=== PATIENT | female | born 1990 | race Two or more races ===

== ENCOUNTER 2020-02-11 08:06 | Outpatient (REF) | payer OTHER, SELFPAY ==
[2020-02-11 08:26] LABS: COVID-19 Test Negative (Negative)
== END 2020-02-11 08:07 | disposition home or self-care (01) ==
LOC: HO.LAB 08:06
PROVIDERS: Visit Provider Internal Medicine
DX: Z20.828 Contact with and (suspected) exposure to other viral communicable diseases (principal)
CPT/HCPCS: 87635

== ENCOUNTER 2020-04-20 08:05 | Outpatient (REF) | payer OTHER, SELFPAY ==
[2020-04-20 08:25] LABS: COVID-19 Test Negative (Negative)
[2020-05-08 11:05] LABS: SARS-COV-2 PCR UMBRL NEGATIVE
[2020-06-05 08:31] LABS: SARS-COV-2 PCR UMBRL NEGATIVE
[2020-06-17 09:01] LABS: SARS-COV-2 PCR UMBRL NEGATIVE
[2020-07-04 08:59] LABS: SARS-COV-2 PCR UMBRL NEGATIVE
[2020-10-02 08:20] LABS: SARS-COV-2 PCR UMBRL NEGATIVE
[2020-11-12 12:32] LABS: SARS-COV-2 PCR UMBRL NEGATIVE
== END 2020-04-20 08:06 | disposition home or self-care (01) ==
LOC: HO.EMPCOV 08:05
PROVIDERS: Visit Provider Internal Medicine
DX: Z20.822 Contact with and (suspected) exposure to COVID-19 (principal)
CPT/HCPCS: 36415; 87635; C9803; U0003

== ENCOUNTER 2020-07-23 07:32 | Outpatient (REF) | payer OTHER, SELFPAY ==
[2020-07-23 07:50] LABS: COVID-19 Test Negative (Negative); IDNOW Serial# 55D5AD1C
[2020-08-28 09:02] LABS: SARS-COV-2 PCR UMBRL POSITIVE
[2020-09-25 11:13] LABS: SARS-COV-2 PCR UMBRL NEGATIVE
[2020-10-11 13:32] LABS: SARS-COV-2 PCR UMBRL NEGATIVE
== END 2020-07-23 07:33 | disposition home or self-care (01) ==
LOC: HO.EMPCOV 07:32
PROVIDERS: Visit Provider Internal Medicine
DX: Z20.822 Contact with and (suspected) exposure to COVID-19 (principal)
CPT/HCPCS: 36415; 87635; C9803; U0003

== ENCOUNTER → 2021-05-26 12:29 | Outpatient (BNVA) | payer MEDICAID, SELFPAY | PROVIDERS: PCP Internal Medicine; Visit Provider Physician Assistant Medical | DX: S70.11XA Contusion of right thigh, initial encounter (principal); S30.0XXA Contusion of lower back and pelvis, initial encounter; S50.12XA Contusion of left forearm, initial encounter; S49.92XA Unspecified injury of left shoulder and upper arm, initial encounter; W00.0XXA Fall on same level due to ice and snow, initial encounter | CPT/HCPCS: 99203 ==

== ENCOUNTER → 2021-05-31 13:23 | Outpatient (BNVA) | payer MEDICAID, SELFPAY | PROVIDERS: PCP Internal Medicine; Visit Provider Physician Assistant Medical | DX: Z13.89 Encounter for screening for other disorder (principal) | CPT/HCPCS: 99213 ==

== ENCOUNTER → 2022-02-03 13:13 | Outpatient (RCR) | payer OTHER, SELFPAY ==
[2020-04-09 12:24] LABS: SARS-COV-2 PCR UMBRL Not Detected
[2020-07-15 12:42] LABS: SARS-COV-2 PCR UMBRL NEGATIVE
[2020-09-09 12:34] LABS: SARS-COV-2 PCR UMBRL NEGATIVE
[2020-10-15 08:25] LABS: SARS-COV-2 PCR UMBRL NEGATIVE
== END | disposition home or self-care (01) ==
LOC: HO.EMPCOV 03-26 11:50
PROVIDERS: Visit Provider Internal Medicine
DX: Z20.828 Contact with and (suspected) exposure to other viral communicable diseases (principal)
CPT/HCPCS: 36415; U0003

== ENCOUNTER 2022-03-14 14:14 | Outpatient (REF) | payer MEDICAID, SELFPAY ==
[2022-03-14 15:05] LABS: Influenza A PCR POSITIVE (Negative); Influenza B PCR NEGATIVE (Negative); Resp Syncy Virus RNA Qual PCR NEGATIVE (Negative); SARS COV2 PCR INHOUSE NEGATIVE (Negative)
== END 2022-03-14 14:15 | disposition home or self-care (01) ==
LOC: HO.LNP 14:14
PROVIDERS: Visit Provider Internal Medicine
DX: R50.9 Fever, unspecified (principal); R51.9 Headache, unspecified; R11.10 Vomiting, unspecified; Z20.822 Contact with and (suspected) exposure to COVID-19
CPT/HCPCS: 0241U

== ENCOUNTER 2022-07-24 23:55 | Emergency (ER) | payer MEDICAID, SELFPAY ==
[2022-07-25 00:22] VITALS: BP 131/91; PULSE 88; RESP 20; TEMP 36.7; O2SAT 99; BMI 34.7
[2022-07-25 00:41] VITALS: BP 113/73; PULSE 94; RESP 16; TEMP 36.8; O2SAT 98
--- NOTE | 2022-07-25 00:52 | ED.EXTPRO ---
HPI - Extremity Problem General Chief complaint: Extremity Problem Stated complaint: Numbness L Leg Time Seen by Provider: 07/25/22 00:44 Source: patient Mode of arrival: ambulatory Limitations: no limitations History of Present Illness HPI Narrative: Patient comes in the emergency room complaining of intermittent sharp shooting pain from the hip to left heel. The patient states that she has had this issue in the past. Patient states that this has been ongoing since 2009. Patient denies any urinary/fecal incontinence or retention. Related Data Previous Rx's Medication Instructions Recorded ketorolac 10 mg tablet 10 mg PO TID PRN pain 5 days #10 07/25/22 tabs Allergies Allergy/AdvReac Type Severity Reaction Status Date / Time acetaminophen [Percocet] Allergy Unknown nausea and Verified 08/24/17 00:00 vomiting oxycodone [Percocet] Allergy Unknown nausea and Verified 08/24/17 00:00 vomiting No Known Allergies Allergy Unverified 01/02/20 17:46 [No Known Allergies*] Review of Systems Review of Systems: Constitutional : No Weight loss, No Fever, No Chills, No Night Sweats, No Fatigue, No Malaise ENT/Mouth : No Hearing loss, No Ear Pain, No Nasal Congestion, No Sinus Pain, No Hoarseness, No sore throat, No Rhinorrhea, No Swallowing Difficulty Eyes: No Eye Pain, No Swelling, No Redness, No Foreign Body, No Discharge, No Vision Changes Cardiovascular : No Chest Pain, No SOB, No Dyspnea on Exertion, No Orthopnea, No Edema, No Palpitations Respiratory : No Cough, No Sputum, No Wheezing, No Smoke Exposure, No Dyspnea Gastrointestinal : No Nausea, No Vomiting, No Diarrhea, No Constipation, No abdominal Pain, No Hematochezia, No Melena Genitourinary : no irregular bleeding, No Dysuria, No Urinary Frequency, No Hematuria, No Urinary Incontinence, No Urgency, No Flank Pain, No Urinary Flow Changes, No Hesitancy Musculoskeletal : Sharp shooting pain from the left hip to the left heel, worsened by certain movements especially with hip flexion Skin : No Skin Lesions, No rash Neuro : No Weakness, No Numbness, No Paresthesias, No Loss of Consciousness, No Dizziness, No Headache Psych : No Anxiety/Panic, No Depression, No SI/HI/AH/VH, No Social Issues, Heme/Lymph: No Bruising, No Bleeding,No Lymphadenopathy Endocrine : No Polyuria, No Polydipsia, No Temperature Intolerance Physical Exam Vital Signs: Vital Signs: Last Vital Signs Temp 98.3 F 07/25/22 00:41 Pulse 94 07/25/22 00:41 Resp 16 07/25/22 00:41 BP 113/73 07/25/22 00:41 Pulse Ox 98 07/25/22 00:41 O2 Del Method Room Air 07/25/22 00:41 BMI result Body Mass Index 34.7 Const: Other: Appearance: Alert. Oriented X3. No acute distress. Well-appearing Eyes: Pupils equal, round and reactive to light. ENT: Pharynx normal. Neck: Normal inspection. Neck supple. No lymph nodes noted. No crepitus CVS: Normal heart rate and rhythm. Pulses normal. Normal S1 and S2 Respiratory: No respiratory distress. Breath sounds normal. No Wheezing. No rales Abdomen: Soft and nontender. No rigidity. No distention. Skin: Skin warm and dry. Normal skin color. Normal skin turgor. Extremities: No lower extremity edema. No Lacerations. No Rash Neuro: Oriented X 3. No motor deficit. No sensory deficit. Moving all extremities. No slurred speech. CN 2 through 12 grossly intact. Slightly positive left raise leg test, negative on the right Psych: calm, cooperative, normal affect Medical Decision Making Medical Decision Making MDM Narrative: -patient's symptoms are chronic, intermittent, for 13 years. -discussed the physical exam with the patient, patient likely has sciatica versus herniated disc. Patient instructed to follow-up with her primary care physician, patient may need physical therapy and if needed MRI. MRI is not emergent. -patient has no loss of motor function and no weakness, cauda equina not suspected -patient given 1 dose of IM dexamethasone and ketorolac Discharge Plan Discharge Clinical Impression: Sciatica Patient Disposition: Home, Self-Care Instructions: Sciatica (ED) Additional Instructions: Please follow-up with your primary care physician tomorrow. If you have any worsening or new symptoms, please return to the emergency room or call 911 Prescriptions: New ketorolac 10 mg tablet 10 mg PO TID PRN (Reason: pain) 5 Days Qty: 10 0RF Rx Instructions: Do not take this medication with ibuprofen/naproxen, only Tylenol if needed.
[2022-07-25] MEDS: Ketorolac Tromethamine 60 MG/2 ML VIAL IM (01:27)
[2022-07-25] MEDS: dexAMETHasone sod phosphate 4 MG/ML VIAL IM (01:27)
== END 2022-07-25 01:48 | disposition home or self-care (01) ==
PROVIDERS: Emergency Provider Emergency Medicine; PCP Internal Medicine
DX: M54.42 Lumbago with sciatica, left side (principal); Z79.899 Other long term (current) drug therapy
CPT/HCPCS: 96372; 99283; 99284; J1100; J1885

== ENCOUNTER 2022-11-10 14:56 | Outpatient (AMB) | payer MEDICAID, SELFPAY ==
--- NOTE | 2022-11-10 14:57 | MHC.OFFVIS ---
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 Required: No Allergies acetaminophen [Percocet] Allergy (Unknown, Verified 11/10/22 15:06) nausea and vomiting oxycodone [Percocet] Allergy (Unknown, Verified 11/10/22 15:06) nausea and vomiting No Known Allergies [No Known Allergies*] Allergy (Unverified 11/10/22 15:06) Medication List - Last Reconciled 11/10/22 by Sole Sorensen CNM ketorolac 10 mg PO TID PRN 5 days HPI [employer]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 This is the 1st time this ever happened to her. She has a history of vaginal births here at the [facility] and a previous baby delivered at [facility] as well then she had 3 miscarriage is and she had her tubes tied a few years ago she is monogamous with her and does not have any worries about STDs and no abnormal discharge. 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 She has gained 36 lb since she started nursing school because of the stress. Does not notice increased facial hair or other secondary symptoms of PCOS. She said she recently had fasting blood work with her primary and everything was good and she has no indication of diabetes [facility] Surgical History History of removal of cyst History of tooth extraction Hx of section Family History Paternal Grandmother Breast CA Social History (Updated 11/10/22 @ 15:11 by Molly Del Real CMA) Household Members: Significant Other and Children Alcohol intake: never Patient Tobacco Use Status: Never used Tobacco Female Reproductive History Menstrual Date of last menstrual period: 10/15/22 Total pregnancies: 7 Number of Living Children: 2 Ab spontaneous: 5 Date of last pap smear: 06/13/16 (WNL) Physical Exam Vital Signs: Last Vital Signs BP 126/86 11/10/22 15:04 BMI result Body Mass Index 38.4 Const General: healthy appearing, comfortable, no acute distress, well developed and alert Nutritional Appearance: average body habitus Orientation/consciousness: patient oriented x3 Limitations: no limitations HEENT Head: Yes normocephalic Neck Neck: Yes normal visual inspection Chest Chest palpation & inspection: normal inspection of the chest Breast/axilla inspection: normal inspection of the breasts and normal inspection of the axillae Breast/axilla palpation: normal palpation of the breasts and normal palpation of the axillae Resp Effort & Inspection: normal respiratory effort GI Inspection: Yes normal to inspection, No Abdominal wall edema and No distended Palpation (GI): Soft to palpation and nontender Other: Evidence of lesions from thighs rubbing Vagina pink moist cervix pink and healthy patient tensed with exams so cervix did re-treat during the exam no abnormal discharge cervix long close thick firm nontender Mobile uterus difficult to feel secondary to adipose and guarding however nontender and mobile adnexa nontender very good tone with Kegel.. General: Yes bladder normal to palpation External Female Exam: normal external appearance and normal appearance of the urethra Speculum Exam - Vagina: normal appearance of the vagina, normal palpation and normal vaginal discharge Speculum Exam - Cervix: normal appearance of the cervix, normal palpation and nontender Bimanual exam- vagina & uterus: normal bimanual exam, normal palpation, uterine size normal, bladder normal to palpation, consistency normal, normal palpation, uterine mobility normal, uterine shape normal, No Cervical tenderness present, non-tender and no cervical motion tenderness Bimanual Exam- Adnexa, other: normal adnexae, no masses, normal and No adnexal tenderness Neuro General: patient oriented x3 Assessment & Plan Assessment & Plan (1) Amenorrhea, secondary: Comment: Plan B Provera and withdrawal bleed consider further evaluation if no withdrawal bleed or any other considerations... Code(s): N91.1 - Secondary amenorrhea (2) Well woman exam with routine gynecological exam: Code(s): Z01.419 - Encounter for gynecological examination (general) (routine) without abnormal findings (3) Screen for sexually transmitted diseases: Code(s): Z11.3 - Encounter for screening for infections with a predominantly sexual mode of transmission (4) Cervical cancer screening: Code(s): Z12.4 - Encounter for screening for malignant neoplasm of cervix Plan -----Discussed in this visit the following: healthy balanced diet, regular and consistent exercise, getting recommended health screens, doing the best she can for her particular health concerns, kegel exercises, pap smear screening and followup recommendations, mammography screening and SBE, normal changes in cycles in her life stage--- . Discussed the usual scenario of secondary amenorrhea and missed menses in this case because it is the 1st time it has happened for her and it does in fact correlate with having gained weight in the somewhat recent past discussed the likely correlation with an ovulatory cycles and the fact that she had the abnormal bleeding in October indicates that she really just needs to have a. Discussed that if I prescribe Provera now and she does not get a period or if anything else abnormal happens that it would be appropriate to and we will do further testing and ultrasound and investigation but in the meantime it would probably serve her best to have a course of Provera and a scheduled withdrawal bleed so that she does not end up in the emergency room with menorrhagia that is uncontrollable I told her to expect feel very premenstrual while she is on the Provera and that her menses after it may be very long and heavy but it is not possible to say how much of each. Also discussed more long-term regulation of her cycle and control pills could be an option because she is not over 35 and also she has taken them in the past and had no difficulties and does not have any contraindications to them but she has also used a Mirena in the past and did not have any problems with that either and discuss that that may be more of of long-term solution to dealing with heavy menses in general and prevent buildup of the lining should this occur again. In the meantime she is going to double her efforts and try to work on losing the weight that she has gained school and if we need to schedule any other testing we will discuss this at a future visit. She thinks that placing a Mirena would be a good idea so she is going to call when she is bleeding after taking the Provera, and we will try to get her in to place a Mirena on that day while she still is bleeding. I explained the rationale. Is in agreement with this plan. Orders: Orders Bacterial Vaginosis Panel Today Z01.419 - Encounter for gynecological examination (general) (routine) without abnormal findings CT NG by PCR Today Z01.419 - Encounter for gynecological examination (general) (routine) without abnormal findings Pap Smear Today Z01.419 - Encounter for gynecological examination (general) (routine) without abnormal findings Medications: New medroxyprogesterone (Provera) 10 mg PO DAILY 10 tabs 0RF Coding Level of Care Code New Pt Prev Care 18-39yr(69203 Diagnoses Amenorrhea, secondary N91.1 Well woman exam with routine gynecological exam Z01.419 Screen for sexually transmitted diseases Z11.3 Cervical cancer screening Z12.4
[2022-11-10 15:04] VITALS: BP 126/86; BMI 38.4
== END 2022-11-10 16:02 | disposition home or self-care (01) ==
LOC: HO.HWS 14:56
PROVIDERS: PCP Internal Medicine; Visit Provider Advanced Practice Midwife
DX: Z01.419 Encounter for gynecological examination (general) (routine) without abnormal findings (principal); N91.1 Secondary amenorrhea; Z11.3 Encounter for screening for infections with a predominantly sexual mode of transmission
CPT/HCPCS: 99385

== ENCOUNTER 2022-11-10 14:56 | Outpatient (REF) | payer MEDICAID, SELFPAY ==
[2022-11-11 18:32] LABS: CT PCR NOT DETECTED (Not Detect.); NG PCR NOT DETECTED (Not Detect.)
[2022-11-12 14:34] LABS: BV Int Neg Control Negative (Negative); BV Int Pos Control Positive (Positive)
[2022-11-18 06:10] LABS: HPV mRNA E6/E7 rflx Not Detected (Not Detected)
== END 2022-11-10 14:57 | disposition home or self-care (01) ==
LOC: HO.LNP 14:56
PROVIDERS: PCP Internal Medicine; Visit Provider Advanced Practice Midwife
DX: Z01.419 Encounter for gynecological examination (general) (routine) without abnormal findings (principal); Z11.51 Encounter for screening for human papillomavirus (HPV); N91.1 Secondary amenorrhea
CPT/HCPCS: 0353U; 87480; 87510; 87624; 87660; 88142; 99385

== ENCOUNTER 2023-09-04 14:16 | Outpatient (AMB) | payer OTHER, SELFPAY ==
[2023-09-04 14:18] VITALS: BP 118/66; BMI 39.3
--- NOTE | 2023-09-04 14:18 | MHC.OFFVIS ---
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 Thereafter her periods returned to more less a normal pattern. She has had her tubes tied and her bleeding seemed like it stopped on Monday and she did have sex last night. She has had her tubes tied so she has not worried about . She and I discussed a Mirena last year but because her periods continue to be more less normal last year she need to come but now she is interested in problem she did start bleeding again little bit this morning as well she has not when pad or tampon however. [facility] Surgical History (Updated 09/04/23 @ 14:22 by TAPAN Patricio) Hx of tubal ligation History of removal of cyst History of tooth extraction Hx of section Family History Paternal Grandmother Breast CA Social History Household Members: Significant Other and Children Alcohol intake: never Patient Tobacco Use Status: Never used Tobacco Female Reproductive History Menstrual Date of last menstrual period: 08/04/23 control method: other (tubal ligation) Total pregnancies: 7 Full term: 2 Number of Living Children: 2 Ab spontaneous: 5 Date of last pap smear: 11/15/22 (negative) Physical Exam Vital Signs: Last Vital Signs BP 118/66 09/04/23 14:18 BMI result Body Mass Index 39.3 Assessment & Plan Assessment & Plan (1) Abnormal uterine bleeding (AUB): Code(s): N93.9 - Abnormal uterine and vaginal bleeding, unspecified Category: Medical Plan Discussed her abnormal bleeding pattern last year she had period of amenorrhea and was treated with Provera however she actually picked up the Provera but did not need to take it because she got a withdrawal bleed on her own that lasted 2 and half weeks. Thereafter her periods returned to pretty much normal occasionally a slight bit early in occasionally half a week to week late but other than not they were on point. Until this last 1 which has bleeding often on for the last month. She feels she is ready for a Mirena. Discussed that probably the best thing to do would also be get an ultrasound to check the lining and also do an endometrial biopsy then place Mirena hopefully the next menses I am ordering ultrasound to be done the soon as can be done and see her soon for endometrial biopsy discussed the interplay between weight gain and the abnormal bleeding pattern will also check her CBC and TSH she will be seeing primary care provider soon for full evaluations etc. as well. She is also enrolled in the [facility] weight loss management program and has gotten all her blood work and will be meeting dietitian soon. Orders: Orders Complete Blood Count no Diff Today N93.9 - Abnormal uterine and vaginal bleeding, unspecified US pelvic and transvaginal Today N93.9 - Abnormal uterine and vaginal bleeding, unspecified Thyroid Stimulating Hormone Today N93.9 - Abnormal uterine and vaginal bleeding, unspecified Coding Level of Care Code Est Pt Level 3 (75091) Diagnoses Abnormal uterine bleeding (AUB) N93.9
== END 2023-09-04 16:10 | disposition home or self-care (01) ==
PROVIDERS: PCP Internal Medicine; Visit Provider Advanced Practice Midwife
DX: N93.9 Abnormal uterine and vaginal bleeding, unspecified (principal)
CPT/HCPCS: 99213

== ENCOUNTER → 2023-09-04 14:16 | Outpatient (BNVA) | payer MEDICAID, SELFPAY | PROVIDERS: PCP Internal Medicine; Visit Provider Advanced Practice Midwife | DX: N93.9 Abnormal uterine and vaginal bleeding, unspecified (principal); Z98.51 Tubal ligation status | CPT/HCPCS: 99212 ==

== ENCOUNTER 2023-09-08 13:23 | Outpatient (REF) | payer OTHER, SELFPAY ==
--- NOTE | ~2023-09-08 | US_ITS ---
EXAMINATION: US PELVIS CLINICAL INFORMATION: Uterine and vaginal bleeding. LMP 08/04/2023 COMPARISON: Obstetrical ultrasound from 2017 and 2018 TECHNIQUE: Ultrasound of the pelvis is performed using both transabdominal and transvaginal transducers along with Doppler. Transvaginal imaging is performed due to inadequate visualization transabdominally. FINDINGS: Uterus: The uterus is anteverted, retroflexed and measures 9.9 x 4.8 x 5.8 cm cm. There are no uterine fibroids The double wall endometrial thickness is 2.5 cm. mm. The uterus is smooth in contour and has normal myometrial echogenicity. There is possible uterine fibroid in the lower uterine segment measured 1.4 x 0.8 x 0.6 cm. Nabothian cysts present. Adnexa: Both ovaries are visualized. There is normal color flow to the adnexa. There is no ovarian torsion. There is no pelvic ascites or fluid collection. Right ovary measures 4.3 x 2.0 x 2.8 cm. Volume of right ovary measured 12.6 mL and there is normal vascular flow and no cysts Left ovary measures 3.2 x 2.4 x 2.7 cm. The volume of left ovary measured 9.7 mL there is dominant follicle measured 1.4 x 1.2 x 1.0 cm.. US/US pelvic and transvaginal IMPRESSION: Patient unable endometrial polyp the lower uterine segment
== END 2023-09-08 13:24 | disposition home or self-care (01) ==
LOC: HO.US 13:23
PROVIDERS: PCP Internal Medicine; Visit Provider Advanced Practice Midwife
DX: N93.9 Abnormal uterine and vaginal bleeding, unspecified (principal)
CPT/HCPCS: 76830; 76856

== ENCOUNTER 2023-09-16 16:35 | Emergency (ER) | payer OTHER, SELFPAY ==
[2023-09-16 16:40] VITALS: BP 148/85; PULSE 92; RESP 20; TEMP 36.6; O2SAT 99; BMI 38.4
--- NOTE | 2023-09-16 16:41 | ED.FEMALEGU ---
HPI - Female Genitourinary General Chief complaint: General Medical Stated complaint: Vaginal bleeding Time Seen by Provider: 09/16/23 21:05 Source: patient Mode of arrival: ambulatory Limitations: no limitations History of Present Illness ED Provider: Dr. Jony Bolanos HPI Narrative: 32-year-old female G7, P2, spontaneous abortions 5 who presents emergency department for evaluation of dysfunctional uterine bleeding. The patient states that she has had irregular periods in the past. She states that over the last 6 weeks however she has been bleeding continually. Since yesterday, she states her bleeding is been severe. She states that she has been going through tampons and pads every 40 minutes. She describes the blood as being bright red with no clots. The patient was seen recently by our OBGYN service. I did review the note by Sole Blair on 09/04/2023.: The patient had an abnormal bleeding pattern last your and had appeared of amenorrhea which which resolved without treatment and her periods returned to normal, until 6 weeks ago when she had continuous vaginal bleeding. She was scheduled for an ultrasound which was done on 09/08/2023. Ultrasound revealed a thickened double endometrium at 2.5 cm and a small fibroid measuring 1.4 x 0.8 by 0.6 cm in the lower uterine segment. Patient was scheduled for an endometrial biopsy on 09/18/2023. Related Data Previous Rx's ?Medication ?Instructions ?Recorded medroxyprogesterone 10 mg tablet 10 mg PO DAILY 10 days #10 tabs 09/16/23 (Provera) oxycodone 5 mg tablet 5 mg PO Q6H PRN pain #10 tabs 09/16/23 Allergies Allergy/AdvReac Type Severity Reaction Status Date / Time No Known Allergies Allergy Verified 09/16/23 16:44 [No Known Allergies*] Review of Systems Review of Systems: Yes all other systems are reviewed and are negative PENDING SALE TO [facility] Past Medical History PENDING SALE TO [facility] Narrative: Social history: Surgical History (Updated 09/04/23 @ 14:22 by TAPAN Patricio) Hx of tubal ligation History of removal of cyst History of tooth extraction Hx of section Family History Family History Paternal Grandmother Breast CA Social History Social History Household Members: Significant Other and Children Alcohol intake: never Patient Tobacco Use Status: Never used Tobacco Advance Directives: No Advance Directives Information Provided: No Do you have a plan to hurt others: No Plan Physical Exam Vital Signs: Vital Signs: Last Vital Signs Temp 97.5 F 09/16/23 21:39 Pulse 95 09/16/23 21:39 Resp 18 09/16/23 21:39 BP 134/82 09/16/23 21:39 Pulse Ox 97 09/16/23 21:39 O2 Del Method Room Air 09/16/23 21:39 BMI result Body Mass Index 38.4 Vital signs were normal Exam: General: Awake, alert in no distress Head: Normocephalic, atraumatic EENT: PERRL, Lids normal, sclera normal, conjunctiva normal, nose normal , ears normal, throat without erythema or exudates Neck: Supple, no adenopathy Lung: breath sounds symmetric, no wheezing, rales or rhonchi Chest: symmetric movement, nontender Heart: regular rate and rhythm, normal S1, S2 no murmurs or rubs Abdomen: soft, moderate suprapubic tenderness, no rebound, no voluntary or involuntary guarding, normoactive bowel sounds Pelvic exam External: Normal Speculum: There was dark blood in the vaginal vault which was cleared out with a 4 large Q-tips, cervical os was visualized and it was closed, small amount of blood was coming from the os. Bimanual: Patient did have tenderness with palpation over her uterus but not her adnexa, she had no significant cervical motion tenderness Back: no vertebral tenderness, no CVAT Extremities: no deformities, moves all extremities symmetrically Neuro: Awake, alert, oriented, normal speech, cranial nerves intact, moves all extremities symmetrically Psych: Pleasant, cooperative Course Course Course Narrative: This is a Rapid Medical Examination (RME) performed by Mckay Acosta PA-C in triage. Full HPI, ROS, assessment and treatment plan per primary provider in the Main ED. 32 yo female with history of abnormal uterine bleeding who follows with doctors are be presents to the ER for evaluation of worsening vaginal bleeding that started last night. Patient reports she has been passing bright red blood and needing to change her pad and tampon every 45 minutes. She reports severe lower abdominal cramps with this increase in bleeding. Pain is 7/10. She also endorses low back pain and muscle cramping. Patient saw Sole Blair on 09/03, and pelvic ultrasound was done showing endometrial polyp. Biopsy is planned for Monday with Sole Blair Plan: Check CBC. Follow-up recs with Dr. Moore Medications Administered Discontinued Medications Generic Name Dose Route Start Last Admin Trade Name Leeq PRN Reason Stop Dose Admin Medroxyprogesterone Acetate 10 mg 09/16/23 21:36 09/16/23 21:58 Medroxyprogesterone Acetate 5 Mg Tablet PO 09/16/23 21:37 10 mg ONCE ONE Administration Naproxen 500 mg 09/16/23 21:50 09/16/23 21:57 Naproxen 500 Mg Tablet PO 09/16/23 21:51 500 mg ONCE ONE Administration Oxycodone HCl 5 mg 09/16/23 21:49 09/16/23 21:58 Oxycodone Hcl Immed Release 5 Mg Tablet PO 09/16/23 21:50 5 mg ONCE STA Administration Medical Decision Making Medical Decision Making MDM Narrative: 32-year-old female G7, P2, spontaneous abortions 5 who presents emergency department for evaluation of dysfunctional uterine bleeding x6 weeks with increased bleeding over the last 2-3 days to the point where she states she was using tampons and pads every 45 minutes since being in the emergency depart. Patient was seen by OBGYN pen had outpatient ultrasound which revealed endometrial thickening and a small uterine fibroid. Patient was scheduled for uterine biopsy on 09/18/2023. Vital signs were normal. Exam did reveal tenderness with palpation over the suprapubic area. Pelvic exam revealed a small amount of blood in the vagina which she was removed with 4 large Q-tips. Patient's bimanual exam did reveal uterine tenderness but no adnexal tenderness and no cervical motion tenderness. Differential diagnosis: ?Includes but is not limited to dysfunctional uterine bleeding, uterine cancer, anovulatory cycle, pelvic inflammatory disease Following evaluation was ordered: CBC, CMP, quantitative beta-hCG Patient was initially treated with the following: Provera 10 mg orally Course: My interpretation patient's laboratory evaluation is as follows: WBC normal 9900 H&H normal 12 and 37.8. Platelet count normal 342,000. CMP unremarkable except for an elevated glucose of 124. Quantitative beta-hCG was below detectable limits. Vaginal exam did not reveal significant bleeding at this time which is reassuring. Patient's presentation is consistent with dysfunctional uterine bleeding. Patient was started on Provera 10 mg daily for 10 days to stop her bleeding and given her 1st dose here in the emergency department. She is scheduled for a uterine biopsy on 09/18/2023. Patient was given printed and verbal instructions and discharged home. Admission/Observation Consideration of admission/observation: Escalation of care including admission/observation considered Lab Data MDM Lab Attestation statement: I reviewed the patient's lab results. 09/16/23 17:44 09/16/23 17:44 Labs: Lab Results 09/16/23 Range/Units 17:44 WBC 9.9 (4.8-10.8) X10*3/uL RBC 4.23 (4.20-5.50) X10*6/uL Hgb 12.6 (12.0-16.0) g/dl Hct 37.8 (37.0-47.0) % MCV 89.4 (80.0-98.0) fL MCH 29.8 (27.0-33.0) pg MCHC 33.3 (31.0-35.0) g/dl RDW 14.0 (11.0-16.0) % Plt Count 342 (160-400) X10*3/uL MPV 9.2 L (9.4-12.3) fL Immature Gran % (Auto) 0.3 (0.0-0.4) % Neut % (Auto) 76.0 H (45-73) % Lymph % (Auto) 15.6 L (20-40) % [place] % (Auto) 6.7 (2-11) % Eos % (Auto) 1.1 (0-4) % Baso % (Auto) 0.3 (0-2) % Lymph # (Auto) 1.6 (1.2-4.9) X10*3/uL [place] # (Auto) 0.7 (0.1-1.2) X10*3/uL Eos # (Auto) 0.1 (0.0-0.4) X10*3/uL Baso # (Auto) 0.0 (0.0-0.2) X10*3/uL Abs Immat Gran (auto) 0.03 (0.00-0.03) X10*3/uL Absolute Neuts (auto) 7.5 (2.0-8.3) x10*3/uL Absolute Nucleated RBC 0.000 (0.0-0.012) X10*3/uL Nucleated RBC % (auto) 0.0 (0.0-0.2) /100WBC Sodium 142 (135-145) mmol/L Potassium 4.0 (3.3-5.1) mmol/L Chloride 105 (96-108) mmol/L Carbon Dioxide 24 (22-29) mmol/L Anion Gap 17 (12-20) BUN 11 (9-16) mg/dL Creatinine 0.79 (0.5-1.4) mg/dL Estim Creat Clear Calc 110.0 Estimated GFR > 60 Random Glucose 124 H (60-115) mg/dL Calcium 9.9 (8.4-10.2) mg/dL Magnesium 1.9 (1.6-2.6) mg/dL Total Bilirubin 0.4 (0.0-1.0) mg/dL Direct Bilirubin 0.1 (0.0-0.5) mg/dL AST 14 (5-31) U/L ALT 18 (0-31) U/L Alkaline Phosphatase 76 (39-117) U/L Total Protein 7.2 (6.5-8.0) g/dL Albumin 4.3 (3.5-5.0) g/dL Beta HCG, Quant < 2 mIU/mL External Record Review External record reviewed: Office record Prescription Management I considered prescription management with: Other (Progesterone steroid (Provera)) Discharge Plan Discharge Clinical Impression: Abnormal uterine bleeding (AUB), Suprapubic pain Patient Disposition: Home, Self-Care Instructions: Menorrhagia (ED) Additional Instructions: On your exam today I did see dark blood in the vagina and blood coming from the cervix which is consistent with uterine bleeding. Despite the severity of your bleeding, your hematocrit was 37.8% (normal is 37-47%). Usually, we do not get worried until your hematocrit drops below 30% and often we do not transfuse people until they are hematocrit gets down to about 21%. I am starting you on a progesterone steroid called Provera (medroxyprogesterone) 10 mg once a day for 10 days. You got your 1st dose here in the emergency department, take your next dose when you fill the prescription tomorrow and then take it once a day. This medication should slow down your bleeding and should stop your bleeding however when she stopped this medication the bleeding can return. Increase your fluid intake. Please return to the emergency department if the bleeding becomes more severe, if you feel lightheaded, dizzy, or if you develop any new symptoms that are concerning to you. Take Aleve(naproxen) 220 mg pills, 2 pills every 6 hours as needed for pain. Take Tylenol (acetaminophen) 500 mg pills, 2 pills every 4-6 hours as needed for pain. For pain not relieved by Aleve or Tylenol take oxycodone 5 mg pills, 1 pill every 6 hours as needed for pain. Do not drive or work while taking this medication since they can cause sleepiness. Oxycodone is a narcotic medication that can be addicting. If you are concerned about addiction you can ask the pharmacist for less pills or do not get this prescription filled. Follow-up with your OBGYN as scheduled on 09/18/2023 Please return to the emergency department if your symptoms get worse or if you develop any symptoms that are concerning to you. Prescriptions: New oxycodone 5 mg tablet 5 mg PO Q6H PRN (Reason: pain) Qty: 10 0RF Rx Instructions: Patient may request partial refill; Partial Fill upon patient request. medroxyprogesterone [Provera] 10 mg tablet 10 mg PO DAILY 10 Days Qty: 10 0RF Discharge Date/Time: 09/16/23 23:09 Print Language: Luxembourgish
[2023-09-16 17:47] LABS: MANUAL DIFF FLAG NO
[2023-09-16 18:03] LABS: Alanine Aminotransferase 18 U/L (0-31); Albumin Level 4.3 g/dL (3.5-5.0); Alkaline Phosphatase 76 U/L (39-117); Anion Gap 17 (12-20); Aspartate Amino Transferase 14 U/L (5-31); Bilirubin Direct 0.1 mg/dL (0.0-0.5); Bilirubin Total 0.4 mg/dL (0.0-1.0); Blood Urea Nitrogen 11 mg/dL (9-16); Calcium 9.9 mg/dL (8.4-10.2); Carbon Dioxide 24 mmol/L (22-29); Chloride 105 mmol/L (96-108); Estimated Glomerular Filt Rate > 60; Glucose Random 124 mg/dL (60-115); Magnesium 1.9 mg/dL (1.6-2.6); Sodium 142 mmol/L (135-145); Total Protein 7.2 g/dL (6.5-8.0)
[2023-09-16 18:10] LABS: HCG Quantitative < 2 mIU/mL
[2023-09-16 18:18] LABS: Basophils Percent Auto 0.3 % (0-2); Eosinophils Absolute Auto 0.1 X10*3/uL (0.0-0.4); Eosinophils Percent Auto 1.1 % (0-4); Hematocrit 37.8 % (37.0-47.0); Hemoglobin 12.6 g/dl (12.0-16.0); Imm Gran Abs Auto 0.03 X10*3/uL (0.00-0.03); Imm Gran Pct Auto 0.3 % (0.0-0.4); Lymphocytes Absolute Auto 1.6 X10*3/uL (1.2-4.9); Lymphocytes Percent Auto 15.6 % (20-40); Mean Corpuscular HGB Conc 33.3 g/dl (31.0-35.0); Mean Corpuscular Hemoglobin 29.8 pg (27.0-33.0); Mean Corpuscular Volume 89.4 fL (80.0-98.0); Mean Platelet Volume 9.2 fL (9.4-12.3); Monocytes Absolute Auto 0.7 X10*3/uL (0.1-1.2); Monocytes Percent Auto 6.7 % (2-11); Neutrophils Absolute Auto 7.5 x10*3/uL (2.0-8.3); Platelet Count 342 X10*3/uL (160-400); Red Blood Count 4.23 X10*6/uL (4.20-5.50); White Blood Count 9.9 X10*3/uL (4.8-10.8)
[2023-09-16 21:39] VITALS: BP 134/82; PULSE 95; RESP 18; TEMP 36.4; O2SAT 97
[2023-09-16] MEDS: NaPROXEN 500 MG TABLET PO (21:57)
[2023-09-16] MEDS: oxyCODONE HCl Immed Release 5 MG TABLET PO (21:58)
[2023-09-16] MEDS: medroxyPROGESTERone Acetate 5 MG TABLET 10 MG PO (21:58)
--- NOTE | 2023-09-16 23:08 | PC.NURSE ---
left without d/c papers
== END 2023-09-16 23:09 | disposition home or self-care (01) ==
PROVIDERS: Physician Assistant; Emergency Provider Emergency Medicine Emergency Medical Services; PCP Internal Medicine
DX: N93.8 Other specified abnormal uterine and vaginal bleeding (principal); R10.30 Lower abdominal pain, unspecified
CPT/HCPCS: 36415; 80048; 80076; 83735; 84702; 85025; 99283

== ENCOUNTER 2023-09-18 14:34 | Outpatient (AMB) | payer OTHER, SELFPAY ==
--- NOTE | 2023-09-18 14:34 | A.OFFVIS_ITS ---
Vital Signs 09/18/23 14:35 Height 5 ft 2 in Weight 211 lb BMI 38.6 BP 114/68 Intake Visit Reasons: EMB and Follow up US/40 mins [employer] A[employer] Required: No Information Interpreted: non-clinical & clinical Powder Carrier: Powder Carrier Present (Venusyn) Allergies No Known Allergies [No Known Allergies*] Allergy (Verified 09/18/23 14:45) Medication List - Last Reconciled 09/18/23 by Sole Sorensen CNM medroxyprogesterone (Provera) 10 mg PO DAILY 10 days oxycodone 5 mg PO Q6H PRN Is last menstrual period known: Yes Last menstrual period: 09/14/23 Post menopausal: No HPI HPI EMB and Follow up US/40 mins: Details: Patient is here for endometrial biopsy and review of her ultrasound the corrected ultrasound results arrived this morning and there is no cervical polyp or endometrial polyp there is a small fibroid at the lower uterine segment please see the ultrasound for all of details. Patient ended up having very heavy bleeding on the weekend and she called Dr. Moore and he had her go to the emergency room where she was evaluated she had testing for STIs done and was given Provera 10 mg p.o. q.day for 10 days as well as 1 dose while she was there. Per discussion providers the plan was to continue the evaluation today which is why she has here for the endometrial biopsy reviewed that we will expect results within a week and she should continue on the Provera and if the results are normal and just show no atypia then my recommendation be to try a Mirena IUD she had 1 in the past and does not remember having any difficulty with it at all. She had her tubes tied since then so she did not need it anymore.. PFSH Surgical History Hx of tubal ligation History of removal of cyst History of tooth extraction Hx of section Family History Paternal Grandmother Breast CA Social History Household Members: Significant Other and Children Alcohol intake: never Patient Tobacco Use Status: Never used Tobacco Female Reproductive History Menstrual Date of last menstrual period: 09/14/23 control method: other (tubal ligation) Date of last pap smear: 11/15/22 (negative) Physical Exam Vital Signs: Last Vital Signs BP 114/68 09/18/23 14:35 BMI result Body Mass Index 38.6 Other: Moderate amount heavy vaginal bleeding occurring clot at cervix. Cervix difficult to visualize anterior and deviated to patient's right. See procedure External Female Exam: normal external appearance and normal appearance of the urethra Speculum Exam - Vagina: normal appearance of the vagina and normal vaginal discharge Speculum Exam - Cervix: normal appearance of the cervix and Cervical os closed Office Procedures Endometrial Biopsy Details: Patient is here for an endometrial biopsy. I explained the procedure and what the goal of the obtaining the sample is, and why we need need to do it today. Patient signed consent form, and appropriate testing was done beforehand. test is negative Patient was placed in recumbent position. Speculum was placed to visualize cervix the cervix was cleansed with Betadine. A tenaculum was gently placed to straighten the axis. The uterus was sounded to 9.75 cm. The endometrial biopsy Pipelle was inserted gently, and withdrawn to obtain sampling of the endometrial tissue for 4 passes. The tenaculum was removed and the cervix was swabbed gently as any bleeding subsided. the patient sat up after removal of the speculum. She is to return for discussion of the results and review of any other testing. [id number] Biopsy Results Reviewed Results Reviewed: RUN: 09/18/23 1444 PAGE 1 [facility] [address] [place] [id number] Poultry Trimmer: Yovany Damon M.D. Specimen Inquiry Name: Trini Ogden Jerrica Age/Sex: 32/F : 1990 Unit#: [id number] Attend Dr: Jony Bolanos MD Re09/16/23 Status: DEP ER Location: HO.ED Disch: SPEC : [id number] KAYE: 09/16/23 STATUS: COMP REQ : [id number] RECD: 09/16/23-[address]: Latha Acosta COMP: 09/16/23-1802 ENTERED: 09/16/23-[address]: Nas Jackson MD ORDERED: Liver Panel, BMP, MG Test Result Flag Reference Sodium 142 135-145 mmol/L Potassium 4.0 3.3-5.1 mmol/L CL 105 96-108 mmol/L CO2 24 22-29 mmol/L Gap 17 12-20 BUN 11 9-16 mg/dL Creat 0.79 0.5-1.4 mg/dL Estimated CrCl 110.0 Provided height and weight: 157.48 cm, 95.254 kg. eGFR (calculated from the MDRD study equation) and eCrCl (calculated from the Cockcroft-Gault equation) are ba sed on different parameters and may not yield comparable results. If eCrCl result is absurd, please check patient's height/weight. EGFR > 60 NOTE: For -[place]omb[place] individuals, multiply the result by 1.210. Chronic Kidney Disease: Estimated GFR < 60 mL/min/1.73m2 Severe Kidney Disease: Estimated GFR < 15 mL/min/1.73m2 Glucose, Random 124 H 60-115 mg/dL CA 9.9 8.4-10.2 mg/dL Magnesium 1.9 1.6-2.6 mg/dL Total Bili 0.4 0.0-1.0 mg/dL Direct Bili 0.1 0.0-0.5 mg/dL AST (GOT) 14 5-31 U/L ALT (GPT) 18 0-31 U/L Protein, Total 7.2 6.5-8.0 g/dL Alb 4.3 3.5-5.0 g/dL Alk Phos 76 39-117 U/L Name: Trini Ogden Jerrica Age/Sex: 32/F : 1990 Unit#: [id number] Attend Dr: Jony Bolanos MD Re09/16/23 Status: DEP ER Location: HO.ED Disch: SPEC : [id number] KAYE: 09/16/23 STATUS: COMP REQ : [id number] RECD: 09/16/[address] [facility] [address]: Latha Acosta COMP: 09/16/23 ENTERED: 09/16/[address]: Nas Jackson MD ORDERED: CBC Auto Diff Test Result Flag Reference WBC 9.9 4.8-10.8 X10*3/uL RBC 4.23 4.20-5.50 X10*6/uL HGB 12.6 12.0-16.0 g/dl HCT 37.8 37.0-47.0 % MCV 89.4 80.0-98.0 fL MCH 29.8 27.0-33.0 pg MCHC 33.3 31.0-35.0 g/dl RDW 14.0 11.0-16.0 % PLT 342 160-400 X10*3/uL MPV 9.2 L 9.4-12.3 fL Neut Pct Auto 76.0 H 45-73 % ImGran Pct Auto 0.3 0.0-0.4 % Lymp Pct Auto 15.6 L 20-40 % [place] Pct Auto 6.7 2-11 % Eos Pct Auto 1.1 0-4 % Baso Pct Auto 0.3 0-2 % NRBC Pct Auto 0.0 0.0-0.2 /100WBC ANC Neut Abs # 7.5 2.0-8.3 x10*3/uL ImGran Abs Auto 0.03 0.00-0.03 X10*3/uL Lymph Abs Auto 1.6 1.2-4.9 X10*3/uL [place] Abs Auto 0.7 0.1-1.2 X10*3/uL Eos Abs Auto 0.1 0.0-0.4 X10*3/uL Baso Abs Auto 0.0 0.0-0.2 X10*3/uL NRBC Abs Auto 0.000 0.0-0.012 X10*3/uL Patient: Trini Ogden MR#: [id number] : 1990 Acct:[id number] Age/Sex: 32 / F ADM Date: 09/08/23 Loc: HO.US Attending Dr: Sole Sorensen CNM Ordering Physician: Sole Sorensen CNM Date of Service: 09/08/23 Procedure(s): US pelvic and transvaginal Accession Number(s): [id number] cc: Nas Jackson MD; Sole Sroensen CNM~ ADDENDUM. Addendum: Impression: Questionably small uterine fibroid in the lower uterine segment and no endometrial polyps Addendum Dictated By: Basim Loving MD Addendum Signed By: <Electronically signed by Basim Loving MD in OV> 09/18/23 1038 Addendum Cosigned By: DD/ TD/TT: / EXAMINATION: US PELVIS CLINICAL INFORMATION: Uterine and vaginal bleeding. LMP 08/04/2023 COMPARISON: Obstetrical ultrasound from 2017 and 2018 TECHNIQUE: Ultrasound of the pelvis is performed using both transabdominal and transvaginal transducers along with Doppler. Transvaginal imaging is performed due to inadequate visualization transabdominally. FINDINGS: Uterus: The uterus is anteverted, retroflexed and measures 9.9 x 4.8 x 5.8 cm cm. There are no uterine fibroids The double wall endometrial thickness is 2.5 cm. mm. The uterus is smooth in contour and has normal myometrial echogenicity. There is possible uterine fibroid in the lower uterine segment measured 1.4 x 0.8 x 0.6 cm. Nabothian cysts present. Adnexa: Both ovaries are visualized. There is normal color flow to the adnexa. There is no ovarian torsion. There is no pelvic ascites or fluid collection. Right ovary measures 4.3 x 2.0 x 2.8 cm. Volume of right ovary measured 12.6 mL and there is normal vascular flow and no cysts Left ovary measures 3.2 x 2.4 x 2.7 cm. The volume of left ovary measured 9.7 mL there is dominant follicle measured 1.4 x 1.2 x 1.0 cm.. US/US pelvic and transvaginal IMPRESSION: Patient unable endometrial polyp the lower uterine segment Dictated By: Basim Loving MD Signed By: <Electronically signed by Basim Loving MD in OV> 09/08/23 1650 DD/ 1353 TD/TT: Block Saw Operator: Assessment & Plan Assessment & Plan (1) Abnormal uterine bleeding (AUB): Code(s): N93.9 - Abnormal uterine and vaginal bleeding, unspecified Category: Medical (2) Cervical cancer screening: Comment: 11/10/2022 Pap is negative with negative HPV. Code(s): Z12.4 - Encounter for screening for malignant neoplasm of cervix Category: Medical Plan Patient is here for endometrial biopsy and review of her ultrasound the corrected ultrasound results arrived this morning and there is no cervical polyp or endometrial polyp there is a small fibroid at the lower uterine segment please see the ultrasound for all of details. Patient ended up having very heavy bleeding on the weekend and she called Dr. Moore and he had her go to the emergency room where she was evaluated she had testing for STIs done and was given Provera 10 mg p.o. q.day for 10 days as well as 1 dose while she was there. Per discussion providers the plan was to continue the evaluation today which is why she has here for the endometrial biopsy reviewed that we will expect results within a week and she should continue on the Provera and if the results are normal and just show no atypia then my recommendation be to try a Mirena IUD she had 1 in the past and does not remember having any difficulty with it at all. She had her tubes tied since then so she did not need it anymore.. Please see the procedure it went smoothly. Four passes of the endometrial biopsy Pipelle were used mostly blood obtained hopefully some testable tissue. I will see her in 1 week and in anticipation of hopefully just disorganized endometrium finding we will plan on an Mirena at that visit as well if there is something else that is found then we will be discussing where to receive best follow possibly evaluation at [facility] maybe recommended seeing. Patient had her mother with her and she was given a letter for work so that she can stay home from work until bleeding is manageable. She works for [employer]. Orders: Orders AMB Endometrial Biopsy Today N93.9 - Abnormal uterine and vaginal bleeding, unspecified, Z12.4 - Encounter for screening for malignant neoplasm of cervix Coding Level of Care Code Est Pt Level 3 (37110) Diagnoses Abnormal uterine bleeding (AUB) N93.9 Cervical cancer screening Z12.4 CPT Codes Endometrial Biopsy - CPT: 99892-Zisdylunboi Biopsy ([id number])
[2023-09-18 14:35] VITALS: BP 114/68; BMI 38.6
== END 2023-09-18 15:46 | disposition home or self-care (01) ==
LOC: HO.HWSM 14:34
PROVIDERS: PCP Internal Medicine; Visit Provider Advanced Practice Midwife
DX: N93.9 Abnormal uterine and vaginal bleeding, unspecified (principal)
CPT/HCPCS: 58100; 99213

== ENCOUNTER 2023-09-18 14:34 | Outpatient (REF) | payer OTHER, SELFPAY | END 2023-09-18 14:35 | disposition home or self-care (01) | LOC: HO.LNP 14:34 | PROVIDERS: PCP Internal Medicine; Visit Provider Advanced Practice Midwife | DX: N93.9 Abnormal uterine and vaginal bleeding, unspecified (principal) | CPT/HCPCS: 58100; 88305; 99212 ==

== ENCOUNTER 2023-09-20 13:56 | Outpatient (AMB) | payer OTHER, SELFPAY ==
--- NOTE | 2023-09-20 13:57 | A.OFFVIS_ITS ---
Intake Visit Reasons: test result Allergies No Known Allergies [No Known Allergies*] Allergy (Verified 09/20/23 13:57) Is last menstrual period known: Yes Last menstrual period: 09/17/23 HPI HPI test result: Details: This is a tele visit to review patient's endometrial biopsy results that were done this week and just completed today. PFSH Surgical History Hx of tubal ligation History of removal of cyst History of tooth extraction Hx of section Family History Paternal Grandmother Breast CA Social History Household Members: Significant Other and Children Alcohol intake: never Patient Tobacco Use Status: Never used Tobacco Female Reproductive History Menstrual Date of last menstrual period: 09/17/23 Date of last pap smear: 11/15/22 (negative) Telehealth Telehealth Telehealth Platform: Telephone Location of provider rendering services: practice address Location of patient: address on file Patient Identification confirmed using: Name, : Yes Telehealth method: voice only Patient verbally consented to treatment: Yes Patient verbally consented to billing insurance company: Yes Patient informed of any privacy concerns related to visit: Yes Minutes spent on Phone/Video with Pt.: 9 (5 cr/9 speaking w pt/6 charting) Results Reviewed Results Reviewed: Name: Trini Ogden Jerrica Age/Sex: 32/F Attending: Sole Sorensen CNM : 1990 Submitted by: Sole Sorensen CNM Copies to: Nas Jackson MD MR #: [id number] Status: DEP REF Collected: 09/18/23 Location: [facility] Received: 09/19/23 Diagnosis Endometrium, biopsy: Benign endometrium with extensive breakdown (lytic endometrium) and abundant blood; no atypia or carcinoma. Clinical History AUB Microscopic Description Microscopic sections reviewed. Material Received EMB Gross Description Received in formalin labeled ?EMB? is a 1.8 x 1.5 x 0.5 cm aggregate of multiple irregular and tubular cast fragments of congested and hemorrhagic red-maroon tissue and blood, submitted in toto in a cassette labeled A. CEDS Copies To Nas Jackson MD [address] [facility] [place] [address] Sole Sorensen CNM [address] [place], [place] [id number] [address] [address] NOTE: Unless otherwise stated, all tissue is formalin-fixed and paraffin- embedded. Some or all of the immunohistochemical tests reported herein may have been developed and their performance characteristics determined by [facility]. They have not been cleared or approved by the U.S. Food and Drug Administration (FDA). However, the FDA has determined that such clearance or approval is not necessary. This laboratory is certified under the Clinical Laboratory Improvement Amendments of 1988 (CLIA) as qualified to perform high complexity clinical laboratory testing. Electronically Signed By: Mariam Dickey 09/20/23 1154 Patient: Trini Ogden Age/Sex: 32/F MR#: [id number] Page 1 of [address] [address] Ultrasound Report Signed with Stefania Patient: Trini Ogden MR#: [id number] : 1990 Acct:[id number] Age/Sex: 32 / F ADM Date: 09/08/23 Loc: .[place] Attending Dr: Sole Sorensen CNM Ordering Physician: Sole Sorensen CNM Date of Service: 09/08/23 Procedure(s): US pelvic and transvaginal Accession Number(s): [id number] cc: Nas Jackson MD; Sole Sorensen [facility]~ ADDENDUM. Addendum: Impression: Questionably small uterine fibroid in the lower uterine segment and no endometrial polyps Addendum Dictated By: Basim Loving MD Addendum Signed By: <Electronically signed by Basim Loving MD in OV> 09/18/23 1038 Addendum Cosigned By: DD/ TD/TT: / EXAMINATION: US PELVIS CLINICAL INFORMATION: Uterine and vaginal bleeding. LMP 08/04/2023 COMPARISON: Obstetrical ultrasound from 2017 and 2018 TECHNIQUE: Ultrasound of the pelvis is performed using both transabdominal and transvaginal transducers along with Doppler. Transvaginal imaging is performed due to inadequate visualization transabdominally. FINDINGS: Uterus: The uterus is anteverted, retroflexed and measures 9.9 x 4.8 x 5.8 cm cm. There are no uterine fibroids The double wall endometrial thickness is 2.5 cm. mm. The uterus is smooth in contour and has normal myometrial echogenicity. There is possible uterine fibroid in the lower uterine segment measured 1.4 x 0.8 x 0.6 cm. Nabothian cysts present. Adnexa: Both ovaries are visualized. There is normal color flow to the adnexa. There is no ovarian torsion. There is no pelvic ascites or fluid collection. Right ovary measures 4.3 x 2.0 x 2.8 cm. Volume of right ovary measured 12.6 mL and there is normal vascular flow and no cysts Left ovary measures 3.2 x 2.4 x 2.7 cm. The volume of left ovary measured 9.7 mL there is dominant follicle measured 1.4 x 1.2 x 1.0 cm.. US/US pelvic and transvaginal IMPRESSION: Patient unable endometrial polyp the lower uterine segment Dictated By: Basim Loving MD Signed By: <Electronically signed by Basim Loving MD in OV> 09/08/23 1650 DD/ 1353 TD/TT: Curriculum Development Specialist: Assessment & Plan Assessment & Plan (1) Abnormal uterine bleeding (AUB): Code(s): N93.9 - Abnormal uterine and vaginal bleeding, unspecified Category: Medical Plan Patient states she still is bleeding very heavy. she went out of the house just to get a pedicure yesterday and we handout again today for just a quick errand and bled through her clothes. she is out of work because is bleeding so heavy. she is up to having the Mirena as soon as possible . she has good questions about what she would do if it does not so the bleeding down. Discussed in the next thing to do after that be have appointment Dr. Moore discuss other options surgical ablation. For now attempt to see there is any way to get her insertion move from Monday to me the Monday. Attempts have been made the schedule did not accommodate it. She is taking naproxen and oxycodone for the cramping Coding Level of Care Code Tele Est Pt Level 3 (36756) Diagnoses Abnormal uterine bleeding (AUB) N93.9 Time Spent (min) 20
== END 2023-09-20 14:29 | disposition home or self-care (01) ==
LOC: HO.HWSM 13:56
PROVIDERS: PCP Internal Medicine; Visit Provider Advanced Practice Midwife
DX: N93.9 Abnormal uterine and vaginal bleeding, unspecified (principal)
CPT/HCPCS: 99213

== ENCOUNTER → 2023-09-20 13:56 | Outpatient (BNVA) | payer OTHER, SELFPAY | PROVIDERS: PCP Internal Medicine; Visit Provider Advanced Practice Midwife ==

== ENCOUNTER 2023-09-22 13:22 | Outpatient (AMB) | payer OTHER, SELFPAY ==
[2023-09-22 14:08] VITALS: BP 116/68; BMI 39.9
--- NOTE | 2023-09-22 14:08 | MHC.OFFVIS ---
Vital Signs 09/22/23 14:08 Height 5 ft 1 in Weight 211 lb BMI 39.9 BP 116/68 Intake Visit Reasons: Mirena insertion Medical Accounting Clerk Required: No Information Interpreted: clinical only Flamer Sealer: Flamer Sealer Present Allergies No Known Allergies [No Known Allergies*] Allergy (Verified 09/22/23 14:10) Medication List - Last Reconciled 09/22/23 by Sole Sorensen CNM medroxyprogesterone (Provera) 10 mg PO DAILY 10 days naproxen sodium 220 mg PO BID PRN oxycodone 5 mg PO Q6H PRN Is last menstrual period known: Yes Last menstrual period: 09/14/23 Do you need a note to return to daycare/school/sports/work: No HPI HPI Mirena insertion: Details: Mirena insertion for patient's abnormal bleeding pattern she has been seen in the past by this provider and also had to speak with Dr. Moore said to the emergency last weekend for very heavy bleeding. She had an ultrasound that was within normal limits ultrasound and an biopsy done of the results are negative showing just benign proliferative endometrium. Arrangements have been made for patient to come today for insertion of Mirena because of her heavy bleeding on the weekend she had to go the emergency room and was given Provera 10 mg to take every day and her bleeding is just now starting to slow down. She has been off from work because of the heavy bleeding she is bled to her clothes up until today today it is minimal. She has had the Mirena in the past and has no other questions. It has been challenging to visualize her cervix. [facility] Surgical History Hx of tubal ligation History of removal of cyst History of tooth extraction Hx of section Family History Paternal Grandmother Breast CA Social History Household Members: Significant Other and Children Alcohol intake: never Patient Tobacco Use Status: Never used Tobacco Female Reproductive History Menstrual Age of Menarche: 11 Date of last menstrual period: 09/14/23 control method: permanent sterilization Total pregnancies: 7 Full term: 2 Date of last pap smear: 08/01/23 (negative) History of abnormal pap smear: No Physical Exam Vital Signs: Last Vital Signs BP 116/68 09/22/23 14:08 BMI result Body Mass Index 39.9 Office Procedures IUD Insert/Removal Details Details: ---Patient is here for her iud ( MIRENA) insertion. Bimanual exam was omitted as I did it earlier in the week prior to her endometrial biopsy. Because of her anatomy in the position of her cervix as in the exam earlier in the week I had the patient use her hands and fists under her buttocks to grasp for buttocks and aid in opening so that I can visualize her cervix which is anterior and deviated slightly to her right. This aided in speculum visualization of her cervix greatly. . The cervix was swabbed with Betadine Tenaculum was placed on the cervix slowly to minimize cramping. The uterus was sounded slowly and gently she show a measurement of 9 -9 1/4 cm. The IUD was removed from its package, after checking identifying information and lot dates and expiration dates and and gently inserted into the os, as per the IUD insertion procedure. The strings were then trimmed to 3-4 centimetres. The tenaculum was removed and gentle pressure applied with a swab, until any bleeding subsided from the tenaculum sites. The speculum was gently removed. The patient sat up. I Reviewed what to expect, and what indications would necessitate a call. Pt to call for fever, untoward pain or cramping. I reviewed any appropriate backup method. Pt to return for recheck as scheduled. 65565-WBC Insertion Procedure code (CPT) selection complete Office Meds Mirena 21 mcg/24 hours (8 yrs) 52 mg intrauterine device Performing Provider: Sole Sorensen CNM [facility] Administered by: Dayne Sorto CMA on 09/22/23 15:27 Dose Route Admin Location Dispensed Lot Number Expiration Date [facility] Speech Language Pathologist Travel 1 device intrauterine 1 ea [id number] 12/14/25 Results AMB Test Urine AMB Test Urine Negative Last Edit by Dayne Sorto CMA on 09/22/23 14:35 Results Reviewed Results Reviewed: Laboratory Last Values [facility] Negative 09/22/23 14:35 Assessment & Plan Assessment & Plan (1) Abnormal uterine bleeding (AUB): Code(s): N93.9 - Abnormal uterine and vaginal bleeding, unspecified Category: Medical (2) Cervical cancer screening: Comment: 11/10/2022 Pap is negative with negative HPV. Code(s): Z12.4 - Encounter for screening for malignant neoplasm of cervix Category: Medical (3) Encounter for IUD insertion: Comment: Mirena IU S placed today for abnormal bleeding. Code(s): Z30.430 - Encounter for insertion of intrauterine contraceptive device Category: Medical Plan Smooth insertion of Mirena IU S in 2 uterus deviated slightly to patient's left see previous notes for details about the placement of the cervix patient used her hands to elevate her buttocks to aid in visualization of her cervix for insertion today. Recommend no tampons or intercourse for the next 3 days for infection prevention and we will see her in 6 weeks. Reviewed signs and symptoms of infection or any problems and we will see her. Additionally patient has just today experienced relief from her very heavy bleeding causing her to bleed through her clothes any time she left the house this week. She is feeling much better she has for Provera tablets of 10 mg left. I told her that she could either finish that prescription or stop it when she chose as she is just now getting really from eating it may start up again a little bit when she stops anything is possible. We will see her in 6 weeks. Orders: Orders AMB HCG Urine Test Today Z32.02 - Encounter for test, result negative AMB IUD Insertion/Removal - Practice Supplied Today N93.9 - Abnormal uterine and vaginal bleeding, unspecified Medications: New Mirena (levonorgestrel) 1 device intrauterine ONCE 1 ea 0RF NS N93.9 - Abnormal uterine and vaginal bleeding, unspecified Coding Level of Care Code Est Pt Level 3 (13014) Diagnoses Abnormal uterine bleeding (AUB) N93.9 Cervical cancer screening Z12.4 Encounter for IUD insertion Z30.430 CPT Codes Details - CPT: 12111-TFQ Insertion ([id number])
== END 2023-09-22 15:08 | disposition home or self-care (01) ==
LOC: HO.HWSM 13:22
PROVIDERS: PCP Internal Medicine; Visit Provider Advanced Practice Midwife
DX: Z30.430 Encounter for insertion of intrauterine contraceptive device (principal); N93.9 Abnormal uterine and vaginal bleeding, unspecified; Z32.02 Encounter for pregnancy test, result negative
CPT/HCPCS: 58300

== ENCOUNTER → 2023-09-22 13:22 | Outpatient (BNVA) | payer OTHER, SELFPAY | PROVIDERS: PCP Internal Medicine; Visit Provider Advanced Practice Midwife | DX: N93.9 Abnormal uterine and vaginal bleeding, unspecified (principal); Z30.430 Encounter for insertion of intrauterine contraceptive device | CPT/HCPCS: 58300; 81025; J7298 ==

== ENCOUNTER → 2024-12-20 12:42 | Outpatient (BNVA) | payer OTHER, SELFPAY | PROVIDERS: PCP Internal Medicine; Visit Provider Emergency Medicine | DX: Z13.89 Encounter for screening for other disorder (principal) ==